=== PATIENT | female | born 1960 | race Caucasian/White ===

== ENCOUNTER 2017-03-17 13:16 | Inpatient (IN) ==
[2017-03-17 14:36] LABS: BASO% 0.3 % (0.0-0.8); EOS# 0.01 X1000 (0.0-0.7); EOS% 0.1 % (0.0-10.0); HEMATOCRIT 50.9 % (37.0-47.0); HEMOGLOBIN 17.6 g/dL (12.0-16.0); LYMPH# 3.23 X1000 (1.2-3.4); LYMPH% 18.2 % (20.5-51.1); MANUAL DIFF NEEDED? NO; MCH 32.2 PG (27-31); MCHC 34.6 g/dL (33-37); MCV 93.1 FL (81-99); MONO# 0.99 X1000 (0.11-0.59); MONO% 5.6 % (1.7-9.3); MPV 11.3 FL (7.4-10.4); NEUT% 75.8 % (42.2-75.2); PLT 386 X1000 (130-400); RBC 5.47 XMIL (4.2-5.4)
[2017-03-17 14:39] LABS: AGAP 22; ALBUMIN 4.8 g/dL (3.5-5.0); ALKALINE PHOSPHATASE 100 U/L (32-104); AMYLASE 42 U/L (20-200); BUN 9 mg/dL (8-22); CALCIUM 10.4 mg/dL (8.8-10.2); CHLORIDE 96 mmol/L (98-107); COSMO 289; GOT 18 U/L (10-30); GPT 27 U/L (10-36); LIPASE 32 U/L (13-60); POTASSIUM 3.7 mmol/L (3.5-5.1); SODIUM 142 mmol/L (136-145); TCO2 24 mmol/L (25-35); TOTAL BILIRUBIN 0.78 mg/dL (0.20-1.00); TOTAL PROTEIN 8.9 g/dL (6.3-8.3)
[2017-03-17] MEDS ORDERED: NS 1,000 ML IV ONE (15:58)
[2017-03-17] MEDS ORDERED: ZOFRAN IV ONE ×2 (15:59→20:10)
--- NOTE | 2017-03-17 16:21 | PROVIDER DOCUMENTATION ---
HPI-Abdominal Pain/GI Problem - General Chief Complaint: Abdominal Pain Stated Complaint: N/V/D Time Seen by Provider: 03/17/17 15:41 Source: patient Allergies/Adverse Reactions: Patient Allergies Allergy/AdvReac Type Severity Reaction Status Date / Time Penicillins AdvReac ANAPHYLAXIS Verified 03/17/17 18:00 Home Medications: Home Medication List Medication Instructions Recorded Confirmed Last Taken Type Asenapine Maleate [Saphris] 10 mg SL HS 03/17/17 03/17/17 Unknown History Citalopram [Celexa] 40 mg PO DAILY 03/17/17 03/17/17 Unknown History Insulin Novolog 70/30 [Novolog Mix 50 unit SUBQ DAILY 03/17/17 03/17/17 Unknown History 70/30] Mirtazapine [Remeron] 15 mg PO DAILY 03/17/17 03/17/17 Unknown History Sitagliptin [Januvia] 50 mg PO HS 03/17/17 03/17/17 Unknown History - History of Present Illness-ABD Nature of Presenting Problems: 56 y.o f with PMH of DMtyp2-IM, who presents today with complaints of generalized 6/10 abd pain, nausea, vomiting for 3 days. Her symptoms started after eating beef taco. Pt reports being unable to retain food. She has skipped her Insulin along with other PO meds. Pt denies presence hematemesis, hematochezia. She also denies urinary symptoms. [place] There are no other sick contact. Abdominal Pain Onset Location: reports: generalized abdomen Pain Radiation: reports: no radiation Quality of Pain: reports: cramping Severity in ED: reports: moderate Onset/Duration: reports: 3 days ago Timing: reports: still present, constant Activities at Onset: reports: none Exposure to sick contacts?: No Modifying Factors: improves with: nothing Associated Symptoms: reports: denies symptoms Last BM: this morning Rectal Bleeding: reports: none Rectal Pain: reports: none Emesis Description: reports: clear Bruising or Bleeding Gums?: No Similar Symptoms Previously?: No Recently seen or treated by another doctor?: No Review of Systems - Adult - REVIEW OF SYSTEMS - ADULT Constitutional: reports: no symptoms reported Eyes: reports: no symptoms reported Ears, Nose, Mouth & Throat: reports: no symptoms reported Cardiovascular: reports: no symptoms reported Respiratory: reports: no symptoms reported Gastrointestinal: reports: see HPI Genitourinary: reports: no symptoms reported Musculoskeletal: reports: no symptoms reported Integumentary: reports: no symptoms reported Neurological: reports: no symptoms reported Psychiatric: reports: no symptoms reported Endocrine: reports: no symptoms reported Hematologic/Lymphatic: reports: no symptoms reported Allergic/Immunologic: reports: no symptoms reported All Other Systems: Reviewed and Negative Past History - Adult - PAST MEDICAL HISTORY-ADULT Review of Records: reports: Old Records Reviewed, Nursing Assessment Review Cardiovascular: reports: denies history Respiratory: reports: denies history Gastrointestinal: reports: denies history Obstetrical/Gynecological: reports: uterine/ovarian cancer, other (s/p hysterectomy hx of breast cancer) Musculoskeletal: reports: denies history Neurological: reports: denies history Psychiatric: reports: depression Endocrine/Immune: reports: Diabetes Diabetes Type: Type 2 - PRIOR SURGERIES/PROCEDURES Surgical/Procedure History: reports: other (hysterectomy) - PRIOR HOSPITALIZATIONS Prior Hospitalizations: reports: none - IMMUNIZATION STATUS Childhood Immunizations: See Nurse Assessment Flu Vaccine: See Nurse Assessment - FAMILY HISTORY Family History: reviewed, not pertinent - SOCIAL HISTORY Smoking: cigarettes (1/2 pack a day since age 17) Substance Use: none/never Physical Exam-General - PHYSICAL EXAM-ADULT Initial Vital Signs Reviewed: Yes - CONSTITUTIONAL General Appearance: alert, mild distress - EYES Eyes: PERRL/EOMI - HEAD, EARS, NOSE, MOUTH & THROAT HENMT: normocephalic/atraumatic - NECK Neck: non-tender - RESPIRATORY Respiratory: chest non-tender, lungs clear, normal breath sounds - CARDIOVASCULAR Cardiovascular: normal peripheral pulses, regular rate, rhythm, no edema, no gallop, no JVD, no murmur - GASTROINTESTINAL (ABDOMEN) Abdominal Exam: soft, no organomegaly, no pulsatile mass, tenderness (with percusion), other (hyperactive) - LYMPHATIC Lymphatic: no adenopathy - MUSCULOSKELETAL Back Exam: normal inspection Extremity: normal range of motion - SKIN Integumentary: normal color - NEUROLOGIC Neurologic: equip tech II-XII nml as tested - PSYCHIATRIC Psych/Mental Status: normal mood/affect Progress - PLAN OF CARE/RESULTS Progress/Plan/Lab Results: Vital Signs - 8 hr 03/17/17 13:22 Temperature 99.3 F Pulse Rate 114 H Respiratory Rate 18 Blood Pressure 135/104 O2 Sat by Pulse Oximetry 98 Laboratory Results - last 24 hr 03/17/17 03/17/17 13:38 13:38 WBC 17.74 H RBC 5.47 H Hgb 17.6 H Hct 50.9 H MCV 93.1 MCH 32.2 H MCHC 34.6 RDW Std Deviation 14.7 H Plt Count 386 MPV 11.3 H Neut % (Auto) 75.8 H Lymph % (Auto) 18.2 L [place] % (Auto) 5.6 Eos % (Auto) 0.1 Baso % (Auto) 0.3 Neut # (Auto) 13.45 H Lymph # (Auto) 3.23 [place] # (Auto) 0.99 H Eos # (Auto) 0.01 Baso # (Auto) 0.06 Sodium 142 Potassium 3.7 Chloride 96 L Carbon Dioxide 24 L Anion Gap 22 BUN 9 Creatinine 0.9 Estimated GFR/1.73 m2 > 60 BUN/Creatinine Ratio 10 Glucose 220 H Calculated Osmolality 289 Calcium 10.4 H Total Bilirubin 0.78 AST 18 ALT 27 Alkaline Phosphatase 100 Total Protein 8.9 H Albumin 4.8 Globulin 4.1 Albumin/Globulin Ratio 1.2 Amylase 42 Lipase 32 Orders Category Date Time Status ABG [RESP] Routine Lab 03/17/17 15:57 Ordered ACETONE SERUM [CHEM] Stat Lab 03/17/17 16:13 Ordered AMYLASE [CHEM] Stat Lab 03/17/17 13:38 Completed CBC WITH ELECTRONIC DIFF [HEME] Stat Lab 03/17/17 13:38 Completed COMPREHENSIVE METABOLIC PANEL [CHEM] Stat Lab 03/17/17 13:38 Completed LIPASE [CHEM] Stat Lab 03/17/17 13:38 Completed URINALYSIS W/POSS RFLX CULT-1 [URINALYSIS] Stat Lab 03/17/17 13:38 Uncollected 0.9% Sodium Chloride Inj [Ns] 1,000 ml Med 03/17/17 15:58 Active IV 999 mls/hr Ondansetron [Zofran] Med 03/17/17 15:59 Discontinued 4 mg IV NOW ONE Result Diagrams: 03/17/17 13:38 03/17/17 13:38 Departure - Departure Date of Disposition Decision: 03/17/17 Time of Disposition Decision: 19:56 DIAGNOSIS: Sepsis, Enteritis Disposition: ADMITTED INPATIENT 09 Certified Medical Emergency: Emergent Condition: Fair Referrals and Follow-Ups: None,PCP [Primary Care Provider] - Discharge Education: Smoking Cessation, Tips for Success - Critical Care Note This patient required my direct & personal management of CC.: No Comments: I present the case to Dr Dougherty - He indicates that he will come see the patient Attestation - Physician/ BK Attestation Patient care was provided by Advanced Practice Provider:: Yes Advanced Practice Provider documentation review:: The Mid-level provider documentation, treatment plan and medical decision making was reviewed by the physician who agrees with all treatment and medical decision making by the MLP. The physician spent face to face time with patient:: Yes Advanced Practice Provider documentation review:: Supervising physician onsite and consulted in the evaluation and care of this patient. The physician did have a face to face encounter with the patient.
[2017-03-17 18:06] LABS: ALLEN TEST YES; BE -0.7 mmoll (-3.0-3.0); BLOOD TYPE ARTERIAL; DRAW SITE R RADIAL; METHB 1.2 % (0.0-1.5); O2(CT) 21.2 mL/dL (15.0-23.0); PCO2(98.6) 31 mmHg (35-45); PO2(98.6) 68 mmHg (60-100); SAMPLE BLOOD; SAO2 97.4 % (95.0-100.0); THB 16.2 g/dL (11.5-17.4); pH(98.6) 7.46 (7.35-7.45)
[2017-03-17 18:09] LABS: MODALITY ROOM AIR
[2017-03-17] MEDS ORDERED: LR 1,500 ML IV ONE (18:33)
[2017-03-17 18:53] LABS: INR 1.02; PROTIME 10.7 Seconds (9.2-11.7); PTT 27.7 Seconds (22.0-36.0)
[2017-03-17 18:58] LABS: URINE CULTURE NEEDED? NO; URINE SOURCE CATH
[2017-03-17 19:00] LABS: BILIRUBIN URINE NEGATIVE (NEGATIVE); BLOOD URINE SMALL (NEGATIVE); COLOR YELLOW; GLUCOSE URINE 300 mg/dL (NEGATIVE); LEUKOCYTES URINE NEGATIVE (NEGATIVE); NITRITE URINE NEGATIVE (NEGATIVE); PROTEIN URINE 200 mg/dL (NEGATIVE); SP GRAVITY URINE 1.029; TURBIDITY URINE CLEAR (CLEAR); URINE MICRO REVIEW NEEDED? YES; UROBILINOGEN URINE NORMAL (NORMAL)
[2017-03-17 19:02] LABS: UR EPITHELIAL CELLS <10 /HPF (<10); URINE BACTERIA NEGATIVE /HPF; URINE RBC <10 /HPF (<10); URINE WBC <10 /HPF (<10)
[2017-03-17 19:13] LABS: URINE CASTS NONE SEEN
[2017-03-17] MEDS ORDERED: NS IV ONE (19:37)
[2017-03-17] MEDS ORDERED: FLAGYL IV ONE (19:37)
--- NOTE | 2017-03-17 19:44 | Diag Imaging Result Doc PS360 ---
EXAM: CT ABDOMEN AND PELVIS WITH IV CONTRAST ONLY INDICATION: gen abd pain TECHNIQUE: Dose reduction protocol was used. COMPARISON: None. FINDINGS: There is hepatomegaly. There is diffuse hepatic steatosis. The spleen is normal. The adrenal glands and pancreas are unremarkable. There is a small simple appearing left renal cyst. The kidneys are unremarkable, otherwise. There is very subtle thickening involving the proximal jejunum with a small air-fluid level. This could indicate mild enteritis. There is no evidence of bowel obstruction. There is trace fluid layering in the pelvis. There has been a previous hysterectomy. The urinary bladder is grossly unremarkable. The remainder of the GI tract is grossly unremarkable. The gallbladder is partially contracted and is unremarkable, otherwise. There is aortic atherosclerotic disease with subaneurysmal ectasia of the infrarenal aorta. IMPRESSION: 1.Subtle thickening of the proximal jejunum suggesting mild enteritis. 2.Diffuse hepatic steatosis and hepatomegaly. Electronically signed by Odell Tinoco 03/17/2017 7:42 PM
[2017-03-17] MEDS ORDERED: CIPRO 400 MG/D5W 400 MG/200 ML IVPB IV ONE (20:00)
--- NOTE | 2017-03-17 20:34 | Diag Imaging Result Doc PS360 ---
EXAM: CHEST-2 VIEWS INDICATION: POSSIBLE SEPSIS TECHNIQUE: 2 views COMPARISON: None. FINDINGS: The lungs are grossly clear. There is no discrete pleural fluid collection or pneumothorax. The cardiomediastinal silhouette and central vasculature are grossly unremarkable. IMPRESSION: No evidence of acute pathology by plain radiograph. Electronically signed by Odell Tinoco 03/17/2017 8:32 PM
[2017-03-17] MEDS ORDERED: COMPAZINE IV PRN (20:40)
[2017-03-17] MEDS ORDERED: MORPHINE IV PRN (20:40)
[2017-03-17] MEDS: ZOFRAN IV SCH (21:00)
[2017-03-17] MEDS ORDERED: SODIUM CHLORIDE 0.9% INJ ONE (21:19)
[2017-03-17] MEDS ORDERED: HUMALOG SUBQ ONE (21:19)
[2017-03-17] MEDS: PEPCID IV SCH (23:19)
[2017-03-17] MEDS: NS 1,000 ML IV SCH (23:19)
--- NOTE | 2017-03-18 00:45 | HISTORY AND PHYSICAL ---
PRIMARY CARE PHYSICIAN: A patient of Dr. Colon in [place], [place]. REASON FOR ADMISSION: A 2-day history of nausea, vomiting, diarrhea. HISTORY OF PRESENT ILLNESS: Ms. Margaret Anthony is a 56-year-old lady with a past medical history of type 2 diabetes, who comes in complaining of generalized 6/10 abdominal pain, nausea, and post prandial vomiting for 3 days. Her abdominal pain is described as a sharp, epigastric, nonradiating, worse with deep breathing, but no specific aggravating factors. It is constant. She denies any hematochezia or hematemesis. No melanotic stools. Her diarrhea is nonbloody, and she says she has about 20-25 episodes per day. It wakes her up at night. It is not related to any meals. She denies any decline in her urine output, or any genitourinary complaints. She denies any fever or chills. Patient reports that this occurred a few hours after eating a hamburger at [employer]. A few hours prior to that, she had eaten a beef burrito at a [employer] restaurant with her daughter, who did not have any ill affects from eating her beef taco. She thinks that this may have been the result a few hours after eating at [employer]. She denies any contact with any sick contacts. No recent use of antibiotics. No contact with anybody with GI complaints. No change in her medications. She came today because she is profoundly weak, and she states for the last 2 days, she has not used her insulin. The patient denies any polyuria or polydipsia. REVIEW OF SYSTEMS: Twelve system review is negative. Positive findings as per HPI. ALLERGIES: Penicillins. HOME MEDICATIONS: 1. Celexa 40 mg daily. 2. Saphris 10 mg at bedtime. 3. 70/30 NovoLog 50 units subcu daily. 4. Remeron 15 mg daily. 5. Januvia 50 mg at bedtime. PAST MEDICAL HISTORY: The patient is on home oxygen at night, suggestive of chronic obstructive pulmonary disease. PAST SURGICAL HISTORY: Patient has had a left mastectomy for breast cancer, and a hysterectomy with BSO for uterine and ovarian cancer. SOCIAL HISTORY: Smokes about 2 packs a day, and has no immediate plans to quit. No alcohol or illicit drug use. Lives with her fiance. FAMILY HISTORY: Breast cancer, uterine cancer, heart disease, diabetes. LABORATORY WORK: White count 17,000. Hemoglobin and hematocrit 17 and 50. Platelets 386,000. Neutrophils 76. Anion gap is 22. BUN 9, creatinine 0.9. Glucose 220. Calcium 10.4. Lipase and amylase normal. Lactate 6.1. PT and PTT normal. Ketones positive. Urinalysis positive for protein, 300 glucose, positive ketones. Blood gas with pH 7.47, lactate 6, PO2 68, pCO2 of 31. Chest film reported as no evidence for any acute pathology noted. CT pelvis shows subtle thickening of the proximal jejunum, suggestive of mild enteritis and hepatic steatosis, with hepatomegaly. PHYSICAL EXAMINATION: VITAL SIGNS: Blood pressure is 150/90, heart rate is 79, respirations 25. Temperature is 98.9 degrees. There is 97% O2 saturation on room air. GENERAL: She is middle-aged woman, who is not in acute distress. She is alert and oriented x3. Normal mood and affect. HEENT: Head is normocephalic, atraumatic. Eyes: PERRLA. EOMI. Anicteric, not pale. ENT exam is grossly normal, with moist oral mucosa. No central cyanosis noted. NECK: Supple. No JVD or carotid bruit. No thyromegaly. She had very mild decreased skin turgor. CHEST: Clear to auscultation. Good air entry in both lung natarajan. CARDIOVASCULAR: First and second heart sounds heard. No gallops, murmurs, rubs. Rhythm is regular. ABDOMEN: Protuberant soft. Tenderness confined to the epigastrium and right upper quadrant area. Bowel sounds are hyperactive. RECTAL: Deferred at this time. EXTREMITIES: No edema, clubbing, or cyanosis. Pulses distally are intact, with good volume and symmetrical. NEUROLOGICAL: No focal deficits. SKIN: Intact. No breakdown, lesions, or erythema. MUSCULAR: Grossly normal. ASSESSMENT: 1. Infectious enteritis. 2. Dehydration. 3. Uncontrolled type 2 diabetes. 4. Probable underlying chronic obstructive pulmonary disease. PLAN: At this time, start patient on aggressive hydration, empiric antibiotics. Stool studies have been ordered. For her epigastric pain, which I presume to be gastritis from persistent vomiting, we will start on IV PPIs, Pepto-Bismol. Her stool culture, C. difficile negative. We will discontinue. For her diabetes, will start on sliding scale. When she is able to resume oral intake, we will consider resuming 70/30 insulin. Otherwise, most of her management will be with fluids, antiemetics. May consider low-dose pain medication if need be. cc: Bharat Dougherty MD
[2017-03-18] MEDS: ZOFRAN IV SCH ×2 (03:33→09:18)
[2017-03-18] MEDS: BISMATROL PO SCH ×4 (04:44→16:16)
[2017-03-18] MEDS: NS 1,000 ML IV SCH ×2 (04:51→11:32)
[2017-03-18 05:57] LABS: MANUAL DIFF NEEDED? NO
[2017-03-18 06:03] LABS: BASO% 0.3 % (0.0-0.8); EOS# 0.08 X1000 (0.0-0.7); EOS% 0.6 % (0.0-10.0); HEMATOCRIT 40.7 % (37.0-47.0); HEMOGLOBIN 13.7 g/dL (12.0-16.0); IMM GRAN# 0.07 X1000 (0.0-0.04); IMM GRAN% 0.5 % (0.0-0.5); LYMPH# 3.87 X1000 (1.2-3.4); LYMPH% 26.9 % (20.5-51.1); MCH 31.1 PG (27-31); MCHC 33.7 g/dL (33-37); MCV 92.5 FL (81-99); MONO# 0.93 X1000 (0.11-0.59); MONO% 6.5 % (1.7-9.3); NEUT% 65.2 % (42.2-75.2); PLT 305 X1000 (130-400)
[2017-03-18 06:21] LABS: AGAP 15; ALBUMIN 3.8 g/dL (3.5-5.0); ALKALINE PHOSPHATASE 71 U/L (32-104); BUN 7 mg/dL (8-22); CALCIUM 8.6 mg/dL (8.8-10.2); CHLORIDE 101 mmol/L (98-107); COSMO 282; GOT 13 U/L (10-30); GPT 16 U/L (10-36); SODIUM 141 mmol/L (136-145); TCO2 25 mmol/L (25-35); TOTAL PROTEIN 6.6 g/dL (6.3-8.3)
[2017-03-18] MEDS: HUMALOG SUBQ SCH ×4 (07:00→20:38)
[2017-03-18] MEDS ORDERED: CIPRO 400 MG/D5W 400 MG/200 ML IVPB IV SCH (08:00)
[2017-03-18] MEDS ORDERED: FLAGYL PO SCH (09:00)
[2017-03-18] MEDS: PEPCID IV SCH ×3 (09:20→20:38)
[2017-03-18] MEDS: SODIUM CHLORIDE 0.9% INJ PRN ×3 (09:21→20:14)
[2017-03-18] MEDS: TYLENOL PO PRN (11:32)
[2017-03-18] MEDS ORDERED: SODIUM CHLORIDE 0.9% INJ PRN (11:58)
[2017-03-18] MEDS: PHENERGAN IV PRN ×2 (12:58→20:35)
[2017-03-18] MEDS: LEVAQUIN 750 MG/D5W 750 MG/150 ML IVPB IV SCH (12:59)
--- NOTE | 2017-03-18 15:28 | PROGRESS NOTE ---
DATE: 03/18/2017 SUBJECTIVE: The patient reports she is still having profuse diarrhea. Yesterday, she had like 20 bowel movements and this morning she had only 6. She is still vomiting, twice, and feeling nauseated, but medication is helping her. OBJECTIVE: VITAL SIGNS: Temperature 98.8 degrees, heart rate 79, respiratory rate 20, blood pressure 142/65, and O2 saturation 99% on room air. GENERAL: This is a 56-year-old female lying in bed in no acute distress. HEENT: Head is normocephalic and atraumatic. Anicteric sclerae. Pale conjunctivae. Mucous membranes moist. NECK: Supple. No JVD noted. No carotid bruit. No lymphadenopathy. No thyromegaly. CARDIOVASCULAR: S1 and S2 heard. No murmurs, gallops, or rubs. Regular rate and rhythm. RESPIRATORY: Clear bilaterally to auscultation. No work of breathing or using accessory muscles. ABDOMEN: Soft. Nontender to palpable. Bowel sounds present and hyperactive. No organomegaly noted. EXTREMITIES: No clubbing, cyanosis, or edema. Peripheral pulses present in both legs. NEUROLOGICAL: Patient is alert and oriented x3. Moves all 4 extremities. LABORATORY DATA: White cell count 14.41. Hemoglobin, hematocrit, and platelets are within normal limits. BMP shows potassium 3.0. ASSESSMENT AND PLAN: 1. Infectious gastroenteritis. The patient is on IV fluids, and medication for nausea and abdominal pain. Stool culture is still pending and white cell count in the stool did not show too many leukocytes, which makes me think that this could be most likely food intoxication. In any case, we prefer to continue with the same management. 2. Uncontrolled diabetes mellitus. The patient will be given sliding scale insulin. 3. Probable underlying chronic obstructive pulmonary disease. Patient will be provided nebulizations p.r.n. cc: Raheel Colón MD
[2017-03-18] MEDS: FLAGYL 500 MG/NS 500 MG/100 ML IVPB IV SCH ×2 (16:15→23:10)
[2017-03-19] MEDS: PHENERGAN IV PRN (02:54)
[2017-03-19] MEDS: FLAGYL 500 MG/NS 500 MG/100 ML IVPB IV SCH ×4 (05:31→21:38)
[2017-03-19] MEDS: HUMALOG SUBQ SCH ×4 (06:11→21:45)
[2017-03-19] MEDS: ZOFRAN IV PRN ×3 (08:07→17:27)
[2017-03-19] MEDS: BISMATROL PO SCH ×3 (08:10→17:27)
[2017-03-19] MEDS: PEPCID IV SCH ×3 (08:10→21:37)
[2017-03-19] MEDS: SODIUM CHLORIDE 0.9% INJ PRN ×2 (08:10→21:37)
[2017-03-19 10:32] LABS: MANUAL DIFF NEEDED? NO
[2017-03-19 10:41] LABS: BASO% 0.6 % (0.0-0.8); HEMATOCRIT 36.9 % (37.0-47.0); HEMOGLOBIN 12.5 g/dL (12.0-16.0); IMM GRAN# 0.04 X1000 (0.0-0.04); IMM GRAN% 0.4 % (0.0-0.5); LYMPH# 2.82 X1000 (1.2-3.4); MCH 31.3 PG (27-31); MCHC 33.9 g/dL (33-37); MCV 92.5 FL (81-99); MONO# 0.55 X1000 (0.11-0.59); MONO% 5.6 % (1.7-9.3); MPV 11.1 FL (7.4-10.4); NEUT% 63.4 % (42.2-75.2); PLT 275 X1000 (130-400); RBC 3.99 XMIL (4.2-5.4)
[2017-03-19] MEDS: LEVAQUIN 750 MG/D5W 750 MG/150 ML IVPB IV SCH ×2 (10:50→12:13)
[2017-03-19 10:52] LABS: AGAP 15; BUN 2 mg/dL (8-22); CALCIUM 8.9 mg/dL (8.8-10.2); CHLORIDE 106 mmol/L (98-107); COSMO 285; POTASSIUM 2.9 mmol/L (3.5-5.1); SODIUM 144 mmol/L (136-145); TCO2 23 mmol/L (25-35)
[2017-03-19] MEDS: POTASSIUM CHLORIDE 60 MEQ in NS 500 ML IV SCH ×2 (13:52→21:37)
--- NOTE | 2017-03-19 13:52 | PROGRESS NOTE ---
DATE: 03/19/2017 SUBJECTIVE: Patient reports still having diarrhea. The date of admission she was having more than 20 bowel movements per day. Yesterday was 6 and today about the same situation. Unfortunately she is still vomiting at least twice daily and she is not able to keep anything down. She denies any fever or chills. OBJECTIVE: Vital Signs: Temperature 98.5 degrees, heart rate 66, respiratory rate 18, blood pressure 138/81, O2 saturation 98% on room air. General Examination: This is a 56-year-old female lying in bed, in no acute distress. HEENT: Head is normocephalic, atraumatic. Mucous membranes dry. Neck: Supple. No JVD noted. No carotid bruits. No lymphadenopathy. No thyromegaly. Cardiovascular: S1, S2 heard. No murmurs, gallops, or rubs. Regular rate and rhythm. Respiratory: Clear bilaterally to auscultation. No work of breathing or using accessory muscles. Abdomen: Soft. Nontender to palpation. Bowel sounds present but hyperactive. No organomegaly noted. Extremities: No clubbing, cyanosis, or edema. Peripheral pulses present in both legs. Neurologic: Patient is alert and oriented x3. Moves 4 extremities. LABORATORY DATA: White cell count 9.74, with hemoglobin 10.5, hematocrit 36.9. BMP remarkable for potassium 2.9 and creatinine 0.7. ASSESSMENT AND PLAN: 1. Acute gastroenteritis. Patient continues on IV fluids and medication for nausea and abdominal pain. The patient is still vomiting. No abdominal pain. The white cell count in the stool was rare which makes me think that this could be like food poisoning. In any case, the white cell count is also trending down from 17,000 to normal limits day. 2. The results for the Clostridium difficile infection is negative. At this point, we are going to continue with levofloxacin and metronidazole. We will continue with the same management. 3. Uncontrolled diabetes mellitus type 2. Patient will continue taking sliding scale insulin as well. 4. Probable underlying chronic obstructive pulmonary disease. The patient will be provided nebulizations with DuoNeb p.r.n. shortness of breath. 5. Overall this patient is doing better but definitely nausea and vomiting are the most important symptoms. We will continue with the same medical management. We will check on this patient tomorrow. cc: Raheel Colón MD
[2017-03-20] MEDS: FLAGYL 500 MG/NS 500 MG/100 ML IVPB IV SCH ×4 (04:53→23:54)
[2017-03-20 05:58] LABS: MANUAL DIFF NEEDED? NO
[2017-03-20] MEDS: HUMALOG SUBQ SCH ×4 (06:09→23:55)
[2017-03-20 06:27] LABS: BASO% 0.5 % (0.0-0.8); EOS# 0.18 X1000 (0.0-0.7); EOS% 2.2 % (0.0-10.0); HEMATOCRIT 35.8 % (37.0-47.0); HEMOGLOBIN 11.9 g/dL (12.0-16.0); IMM GRAN# 0.02 X1000 (0.0-0.04); IMM GRAN% 0.2 % (0.0-0.5); LYMPH% 31.9 % (20.5-51.1); MCH 30.7 PG (27-31); MCHC 33.2 g/dL (33-37); MCV 92.3 FL (81-99); MONO# 0.66 X1000 (0.11-0.59); MONO% 8.1 % (1.7-9.3); MPV 11.2 FL (7.4-10.4); NEUT% 57.1 % (42.2-75.2); PLT 243 X1000 (130-400); RBC 3.88 XMIL (4.2-5.4)
[2017-03-20 07:04] LABS: AGAP 12; BUN 1 mg/dL (8-22); CALCIUM 8.7 mg/dL (8.8-10.2); CHLORIDE 108 mmol/L (98-107); COSMO 283; POTASSIUM 3.4 mmol/L (3.5-5.1); SODIUM 144 mmol/L (136-145); TCO2 24 mmol/L (25-35)
[2017-03-20] MEDS ORDERED: POTASSIUM CHLORIDE 60 MEQ in NS 500 ML IV ONE (07:46)
[2017-03-20] MEDS: TYLENOL PO PRN ×2 (09:07→23:55)
[2017-03-20] MEDS: BISMATROL PO SCH ×3 (09:07→16:29)
[2017-03-20] MEDS: PEPCID IV SCH (09:07)
[2017-03-20] MEDS: ZOFRAN IV PRN ×3 (11:48→23:55)
[2017-03-20] MEDS: LEVAQUIN 750 MG/D5W 750 MG/150 ML IVPB IV SCH (11:48)
--- NOTE | 2017-03-20 14:16 | PROGRESS NOTE ---
DATE: 03/20/2017 SUBJECTIVE: The patient reports not vomiting anymore, having 2 episodes of diarrhea. She mentioned that she wanted to try some food. She denies any fever or chills. OBJECTIVE: Vital Signs: Temperature 100.0 degrees, heart rate 81, respiratory 16, blood pressure 121/70, O2 saturation 96% on room air. General: This is a 56-year-old, female, lying in bed, in no acute distress. HEENT: Head is normocephalic, atraumatic. Anicteric sclerae and pale conjunctivae. Mucous membranes moist. Neck: Supple. No JVD noted. No carotid bruits. No lymphadenopathy. No thyromegaly. Cardiovascular: S1, S2 heard. No murmurs, gallops, or rubs. Regular rate and rhythm. Respiratory: Clear bilaterally to auscultation. No work of breathing or use of accessory muscles. Abdomen: Soft, nontender to palpation. Bowel sounds present., but hyperactive. No organomegaly noted. Extremities: No clubbing, cyanosis, or edema. Peripheral pulses present in both legs. Neurological: Patient is alert and oriented x3. Able to move 4 extremities. Cranial nerves 2 through 12 grossly normal. LABORATORY DATA: The CBC remarkable for hemoglobin 11.9, and BMP remarkable for potassium 3.4. ASSESSMENT AND PLAN: 1. Acute gastroenteritis. The patient continues with IV fluids and medication for nausea and abdominal pain. The patient is not vomiting anymore. The patient requests to have a diet to try. White cell count is back to normal. I think this patient is clinically improving. As we mentioned before, we will try to give her a clear-liquid diet and will advance the diet as tolerated. If she is able to eat and keep things down, will probably discharge tomorrow. Clostridium difficile test is negative. We will continue with levofloxacin and metronidazole. 2. Uncontrolled diabetes mellitus type 2. We will continue with the sliding-scale insulin. 3. Possible underlying chronic obstructive pulmonary disease. The patient will be provided nebulization with DuoNeb p.r.n. for shortness of breath. Overall, this patient is doing good. Nausea is almost gone, so will try a clear-liquid diet, and if this patient is able to tolerate the diet, we will discharge her tomorrow. cc: Raheel Colón MD
[2017-03-21] MEDS: PEPCID IV SCH ×2 (00:02→08:27)
[2017-03-21 05:48] LABS: MANUAL DIFF NEEDED? NO
[2017-03-21 06:06] LABS: BASO% 0.8 % (0.0-0.8); EOS# 0.31 X1000 (0.0-0.7); EOS% 3.7 % (0.0-10.0); HEMATOCRIT 37.2 % (37.0-47.0); HEMOGLOBIN 12.6 g/dL (12.0-16.0); IMM GRAN# 0.04 X1000 (0.0-0.04); IMM GRAN% 0.5 % (0.0-0.5); LYMPH# 2.55 X1000 (1.2-3.4); LYMPH% 30.3 % (20.5-51.1); MCHC 33.9 g/dL (33-37); MCV 91.6 FL (81-99); MONO# 0.55 X1000 (0.11-0.59); MONO% 6.5 % (1.7-9.3); MPV 11.2 FL (7.4-10.4); NEUT% 58.2 % (42.2-75.2); PLT 248 X1000 (130-400); RBC 4.06 XMIL (4.2-5.4)
[2017-03-21 06:21] LABS: AGAP 13; BUN 2 mg/dL (8-22); CALCIUM 8.6 mg/dL (8.8-10.2); CHLORIDE 108 mmol/L (98-107); COSMO 288; POTASSIUM 3.3 mmol/L (3.5-5.1); SODIUM 146 mmol/L (136-145); TCO2 25 mmol/L (25-35)
[2017-03-21] MEDS: ZOFRAN IV PRN (07:02)
[2017-03-21] MEDS: FLAGYL 500 MG/NS 500 MG/100 ML IVPB IV SCH (07:02)
[2017-03-21] MEDS: HUMALOG SUBQ SCH (07:06)
[2017-03-21 07:33] VITALS: BP 115/64
[2017-03-21] MEDS: SODIUM CHLORIDE 0.9% INJ PRN (08:27)
[2017-03-21] MEDS: BISMATROL PO SCH (08:27)
[2017-03-21] MEDS ORDERED: KLOR-CON PO ONE (09:52)
--- NOTE | 2017-03-21 17:58 | DISCHARGE SUMMARY ---
ADMISSION DATE: 03/17/2017 DISCHARGE DATE: 03/21/2017 CONSULTATIONS: None. PERTINENT PROCEDURES: 1. Pelvic CT shows subtle thickening of proximal jejunum suggesting mild enteritis, diffuse hepatic steatosis and hepatomegaly. 2. Chest x-ray showed no evidence of acute pathology. DISCHARGE DIAGNOSES: 1. Acute gastroenteritis, resolved. 2. Uncontrolled diabetes mellitus, type 2. Continue with NovoLog and Januvia. 3. Possible underlying chronic obstructive pulmonary disease. The patient provided with nebulizer and Duo Neb for p.r.n. shortness of breath. HOSPITAL COURSE: Ms. Anthony is a 56-year-old female who carries a past medical history of type 2 diabetes. She came to the ED complaining of generalized abdominal pain, nausea, and postprandial vomiting for 3 days. Her abdominal pain is described as sharp, epigastric, nonradiating, worse with deep breathing. No specific aggravating factors. It is constant. Diarrhea is nonbloody and has about 20-25 episodes per day. It wakes her up in the night. Not related to any meals. Patient reported this occurred after eating a few hours at [employer]. Prior to that she had eaten a beef burrito at a [employer] restaurant with her daughter who did not have any ill side effects from eating her beef tact. She thinks it may be the effect after eating [employer]. Laboratory data revealed a white count of 17 and blood glucose of 220. Her amylase and lipase are normal. Lactate was 6.1. Ketones positive. Urinalysis was positive for protein, positive for ketones. Blood gas with a pH of 7.47, lactate of 6, PO2 of 68, pCO2 of 31. Chest film showed no evidence of acute pathology. CT of the pelvis showed thickening of the proximal jejunum suggestive of mild enteritis and hepatic steatosis with hepatomegaly. The patient was admitted for infectious enteritis, aggressively hydrated, and started on empiric antibiotics. Blood cultures and stool cultures have all been negative. She was started on IV PPI, Pepto-Bismol, as well as antiemetics for her nausea. The patient's nausea and vomiting has resolved. She has had 2 episodes of diarrhea in the last 2 days. She was initiated on a clear liquid diet and then advanced as tolerated. She has tolerated her diet well. She is appropriate for discharge today. VITAL SIGNS: Temperature is 99 degrees, heart rate 69, respirations 20, blood pressure 115/64, O2 is 98% on room air. DISCHARGE DIET: Full liquid and advance as tolerated. DISCHARGE MEDICATIONS: 1. Saphris 10 mg sublingual at bedtime. 2. Celexa 40 mg p.o. daily. 3. NovoLog mix 70/30, 50 units subcutaneous daily. 4. Levaquin 750 mg p.o. daily. 5. Flagyl 500 mg p.o. t.i.d. 6. Remeron 15 mg p.o. daily. 7. Januvia 50 mg p.o. at bedtime. FOLLOW UP ON DISCHARGE: Ms. Anthony is being discharged back home. She will need to follow up with her primary care physician in [place]. She was here visiting family. She will return to the ED for any worsening of symptoms. Dictated by HAKEEM Sarah for Raheel Colón MD cc: Raheel Colón MD
== END 2017-03-21 11:23 | disposition home or self-care (01) ==
LOC: ED 13:16 → 4N 20:48 → SUATTDRO 20:48 → 4N 20:54
PROVIDERS: ATTEND Internal Medicine